=== PATIENT | female | born 1950 | race Caucasian/White ===

== ENCOUNTER 2020-08-27 08:51 | Outpatient (REF) | payer MEDICARE, MEDICAID, SELFPAY ==
--- NOTE | 2020-08-27 | PFT_ITS ---
FLOWS: FEV1 of 86% of predicted at 2.01 L. FVC 91% of predicted at 2.72 L. FEV1 to FVC ratio of 0.95. Bronchodilator testing was not performed as the patient has had albuterol and Advair prior to the testing. LUNG VOLUMES: Total lung capacity 88% of predicted at 4.47 L. Residual volume 73% of predicted at 1.59 L. Slow vital capacity 99% of predicted at 2.88 L. Expiratory reserve volume 85% of predicted at 0.61 L. Diffusion capacity moderately decreased. IMPRESSION: No obstructive or restrictive ventilatory defect. Bronchodilator testing was not performed as the patient has used Advair and albuterol 2 hours prior to the testing. Decreased diffusion capacity suggests emphysema. MD GENE Velasquez/MODL / [id number] MTDD
== END 2020-08-27 08:52 | disposition home or self-care (01) ==
LOC: HO.RESP 08:51
PROVIDERS: PCP Internal Medicine; Visit Provider Hospitalist
DX: J44.9 Chronic obstructive pulmonary disease, unspecified (principal)
CPT/HCPCS: 94010; 94727; 94729

== ENCOUNTER → 2020-09-11 11:33 | Outpatient (BNVA) | payer MEDICARE, MEDICAID, SELFPAY | PROVIDERS: PCP Internal Medicine; Visit Provider Hospitalist | DX: J44.9 Chronic obstructive pulmonary disease, unspecified (principal); J98.4 Other disorders of lung | CPT/HCPCS: 99212 ==

== ENCOUNTER → 2021-09-11 10:26 | Outpatient (BNVA) | payer OTHER, SELFPAY | PROVIDERS: PCP Family Medicine; Visit Provider Hospitalist | DX: J44.9 Chronic obstructive pulmonary disease, unspecified (principal); J98.4 Other disorders of lung | CPT/HCPCS: 99212 ==

== ENCOUNTER 2022-09-14 09:52 | Outpatient (AMB) | payer OTHER, SELFPAY ==
[2022-09-14 09:58] VITALS: BP 128/60; PULSE 89; O2SAT 98; BMI 36.6
--- NOTE | 2022-09-14 09:58 | A.OFFVIS_ITS ---
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 Overall she has been doing well. Back in March she did develop worsening respiratory symptoms. She was taken to the [facility] ER for evaluation. There she had an x-ray that was read as no acute disease she had blood work that was negative. 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 She is continue with her inhalers and she has been at baseline. He has been taking added protection because of the COVID-19 infections. Nobody in her family has gotten sick with virus. Overall she is doing well. We did review her x-ray from [facility] perceived by me demonstrating no acute disease. Also her blood work just demonstrated some mild anemia. At this point the patient is doing well on the current respiratory regimen so therefore we continue this regimen and follow-up with pulmonary function studies during the next visit. 09/11/2020 the patient is here for a pulmonary follow-up visit. Since we last spoke the patient has been doing well. She continues to have some dyspnea on exertion [id number] severity. It is likely multifactorial. She has not required any hospitalizations and has not required any prednisone since I last visit. She has not been able to get her Daliresp in the pharmacy for unclear reason. She felt very good in the Daliresp. Decreased her exacerbations. Therefore, I will resend to the pharmacy. In the meantime she did undergo pulmonary function studies that we personally reviewed in the office. appears to have a mild mixed obstructive / restrictive ventilatory defect consistent with asthma COPD overlap syndrome in addition to restrictive lung disease. Patient also has some decreasing the gas exchange down to 55%. Will have a repeat the chest x-ray. otherwise the patient is without any other complaints. 09/11/2021 the patient is here for a pulmonary follow-up visit. Overall she has been doing well from her respiratory status. She continues use her Advair as prescribed and also Daliresp. While on this therapy she has not required any prednisone which is reassuring. Her productive cough also significantly improved. As far as the vent for events she did have a fall in the bathroom hurting her shoulder and her arm. She is going to get evaluation for that. Den ies any injuries or blunt trauma to the chest area. We did review her last chest x-ray that she had back in 2020 which demonstrated some hyperinflated lungs. Will go ahead and repeat her chest x-ray as well as her PFTs in a year's time. She is going to continue on the current respiratory therapy. 09/14/2022 the patient is here for pulmonary follow-up visit. Overall the patient continues to do well. She has been off all prednisone. She continues to respond well to Daliresp. Will switch over to the generic but she seems to tolerated as well. She has lost about 20 lb in the last year which is reassuring. She does continue on the Advair. The patient does need to have a rescue inhaler make sure to have 1 available. We did review her CT scan that she had back in 2020 demonstrating atelectasis. The patient needs to get a repeat chest x-ray. She could not have her PFTs done because she was sick with a viral syndrome. The patient did not require any medications during that sickness. Clinically the since the patient is doing well will go ahead and postpone the PFTs time next year. Although I do want her to get an x-ray at this time. [facility] Medical History (Updated 09/14/22 @ 10:15 by Alex Lindsay MD) Asthma-COPD overlap syndrome Atelectasis Chronic restrictive lung disease Social History (Updated 09/11/21 @ 10:38 by SARA Alas) Patient Tobacco Use Status: Former Tobacco user Tobacco use type: Cigarette Years Smoked: 30 years Review of Systems Const Denies night sweats ENT Denies change in voice, Denies lip swelling, Denies mouth pain, Reports nasal congestion, Reports nasal discharge, Reports neck pain and Denies tongue swelling Card Denies chest pain Resp Reports cough GI Denies abdominal pain Musc Reports as per HPI, Reports myalgias, Reports arthralgias, Reports joint swelling and Reports neck pain Neuro Denies Neuro-related abnormal movements Psych Denies no additional complaints Lit/Lymph Denies easy bleeding and Denies lymphadenopathy Aller/Immun Denies lip swelling and Denies tongue swelling Physical Exam Vital Signs: Last Vital Signs Pulse 89 09/14/22 09:58 BP 128/60 09/14/22 09:58 Pulse Ox 98 09/14/22 09:58 Oxygen Delivery Method Room Air 09/14/22 09:58 BMI result Body Mass Index 36.6 Const General: alert Neck Neck: Yes normal visual inspection, Yes full ROM and Yes no lymphadenopathy Chest Chest palpation & inspection: normal inspection of the chest Resp Auscultation: no wheezes and diminished lung sounds Cardio Rate: regular rate Rhythm: regular rhythm Heart sounds: S1 normal heart sound present and S2 normal heart sound present GI Palpation (GI): Soft to palpation and nontender Auscultation: normal bowel sounds Skin General skin exam: rashes and/or lesions noted Assessment & Plan Assessment & Plan (1) Asthma-COPD overlap syndrome: Code(s): J44.9 - Chronic obstructive pulmonary disease, unspecified (2) Chronic restrictive lung disease: Code(s): J98.4 - Other disorders of lung (3) Atelectasis: Code(s): J98.11 - Atelectasis Plan continue Daliresp continue Singulair and Claritin continue Advair HFA MARILY as needed chest x-ray PFTs in 1 yr follow-up in 1 year or sooner if she develops any new or concerning symptoms. Orders: Orders XR chest 2V Today J98.11 - Atelectasis Medications: Changed From albuterol sulfate 90 mcg/actuation 2 puffs PO Q4-6H PRN 8.5 ea 3RF for wheezing To albuterol sulfate 90 mcg/actuation 2 puffs PO Q4-6H 30 days PRN 8.5 ea 11RF for wheezing Coding Level of Care Code Est Pt Level 4 (71352) Diagnoses Asthma-COPD overlap syndrome J44.9 Chronic restrictive lung disease J98.4 Atelectasis J98.11 Time Spent (min) 18
== END 2022-09-14 10:24 | disposition home or self-care (01) ==
PROVIDERS: PCP Family Medicine; Visit Provider Hospitalist
DX: J44.9 Chronic obstructive pulmonary disease, unspecified (principal); J98.4 Other disorders of lung; J98.11 Atelectasis
CPT/HCPCS: 99214

== ENCOUNTER → 2022-09-14 09:52 | Outpatient (BNVA) | payer OTHER, SELFPAY | PROVIDERS: Visit Provider Hospitalist | DX: J44.9 Chronic obstructive pulmonary disease, unspecified (principal); J98.4 Other disorders of lung; J98.11 Atelectasis | CPT/HCPCS: 99212 ==

== ENCOUNTER 2023-06-21 08:55 | Outpatient (AMB) | payer OTHER, SELFPAY ==
[2023-06-21 09:02] VITALS: PULSE 84; O2SAT 96; BMI 39.9
--- NOTE | 2023-06-21 09:02 | A.OFFVIS_ITS ---
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 Overall she has been doing well. Back in March she did develop worsening respiratory symptoms. She was taken to the [facility] ER for evaluation. There she had an x-ray that was read as no acute disease she had blood work that was negative. 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 She is continue with her inhalers and she has been at baseline. He has been taking added protection because of the COVID-19 infections. Nobody in her family has gotten sick with virus. Overall she is doing well. We did review her x-ray from [facility] perceived by me demonstrating no acute disease. Also her blood work just demonstrated some mild anemia. At this point the patient is doing well on the current respiratory regimen so therefore we continue this regimen and follow-up with pulmonary function studies during the next visit. 09/11/2020 the patient is here for a pulmonary follow-up visit. Since we last spoke the patient has been doing well. She continues to have some dyspnea on exertion [id number] severity. It is likely multifactorial. She has not required any hospitalizations and has not required any prednisone since I last visit. She has not been able to get her Daliresp in the pharmacy for unclear reason. She felt very good in the Daliresp. Decreased her exacerbations. Therefore, I will resend to the pharmacy. In the meantime she did undergo pulmonary function studies that we personally reviewed in the office. appears to have a mild mixed obstructive / restrictive ventilatory defect consistent with asthma COPD overlap syndrome in addition to restrictive lung disease. Patient also has some decreasing the gas exchange down to 55%. Will have a repeat the chest x-ray. otherwise the patient is without any other complaints. 09/11/2021 the patient is here for a pulmonary follow-up visit. Overall she has been doing well from her respiratory status. She continues use her Advair as prescribed and also Daliresp. While on this therapy she has not required any prednisone which is reassuring. Her productive cough also significantly improved. As far as the vent for events she did have a fall in the bathroom amanda ting her shoulder and her arm. She is going to get evaluation for that. Denies any injuries or blunt trauma to the chest area. We did review her last chest x- ray that she had back in 2020 which demonstrated some hyperinflated lungs. Will go ahead and repeat her chest x-ray as well as her PFTs in a year's time. She is going to continue on the current respiratory therapy. 09/14/2022 the patient is here for pulmonary follow-up visit. Overall the patient continues to do well. She has been off all prednisone. She continues to respond well to Daliresp. Will switch over to the generic but she seems to tolerated as well. She has lost about 20 lb in the last year which is reassuring. She does continue on the Advair. The patient does need to have a rescue inhaler make sure to have 1 available. We did review her CT scan that she had back in 2020 demonstrating atelectasis. The patient needs to get a repeat chest x-ray. She could not have her PFTs done because she was sick with a viral syndrome. The patient did not require any medications during that sickness. Clinically the since the patient is doing well will go ahead and postpone the PFTs time next year. Although I do want her to get an x-ray at this time. 06/21/2023 the patient is here for a pulmonary follow-up visit. Overall she has been doing well. She has not been hospitalized in the last year which is very reassuring. She has been using the Advair twice a day as prescribed. I did recommend she rinse with salt water to minimize risk of thrush. In addition to that she had been using her allergy medications with good effect. We did review her last chest x-ray that was back in the fall of 2022 demonstrating no acute disease which is reassuring. She was supposed to undergo PFTs but otherwise she doing well. We did review the PFTs from 2020 which were reassuring with no evidence of obstruction. Therefore this point as long as she is doing okay will hold off on PFTs. We did talk about vaccinations. The patient most likely receive the Prevnar 20 but she will look into it. In addition to that I recommend that she get the RC vaccine in the flu shot and she should also consider the COVID booster. Will follow-up in a year's time unless the patient develops any worsening symptoms she can always call for an earlier assessment. [facility] Medical History (Updated 09/14/22 @ 10:15 by Alex Lindsay MD) Atelectasis Chronic restrictive lung disease Asthma-COPD overlap syndrome Social History (Updated 09/11/21 @ 10:38 by SARA Alas) Patient Tobacco Use Status: Former Tobacco user Tobacco use type: Cigarette Years Smoked: 30 years Review of Systems Const Denies night sweats ENT Denies change in voice, Denies lip swelling, Denies mouth pain, Reports nasal congestion, Reports nasal discharge, Reports neck pain and Denies tongue swelling Card Denies chest pain Resp Reports cough GI Denies abdominal pain Musc Reports as per HPI, Reports myalgias, Reports arthralgias, Reports joint s welling and Reports neck pain Neuro Denies Neuro-related abnormal movements Psych Denies no additional complaints Lit/Lymph Denies easy bleeding and Denies lymphadenopathy Aller/Immun Denies lip swelling and Denies tongue swelling Physical Exam Vital Signs: Last Vital Signs Pulse 84 06/21/23 09:02 Pulse Ox 96 06/21/23 09:02 Oxygen Delivery Method Room Air 06/21/23 09:02 BMI result Body Mass Index 39.9 Const General: alert Neck Neck: Yes normal visual inspection, Yes full ROM and Yes no lymphadenopathy Chest Chest palpation & inspection: normal inspection of the chest Resp Auscultation: no wheezes and diminished lung sounds Cardio Rate: regular rate Rhythm: regular rhythm Heart sounds: S1 normal heart sound present and S2 normal heart sound present GI Palpation (GI): Soft to palpation and nontender Auscultation: normal bowel sounds Skin General skin exam: rashes and/or lesions noted Assessment & Plan Assessment & Plan (1) Asthma-COPD overlap syndrome: Code(s): J44.9 - Chronic obstructive pulmonary disease, unspecified Category: Medical (2) Chronic restrictive lung disease: Code(s): J98.4 - Other disorders of lung Category: Medical (3) Atelectasis: Code(s): J98.11 - Atelectasis Category: Medical Plan continue Daliresp continue Singulair and Claritin continue Advair HFA MARILY as needed Follow-up in 1 year or sooner if she develops any new or concerning symptoms. Medications: Changed From loratadine 10 mg PO DAILY To loratadine 10 mg PO DAILY 30 tabs 11RF 30 days Refilled Advair HFA 115-21 mcg/actuation (fluticasone propion-salmeterol) 2 puffs PO BID 12 ea 11RF NS albuterol sulfate 90 mcg/actuation 2 puffs PO Q4-6H PRN 8.5 ea 11RF for wheezing 30 days montelukast 10 mg PO DAILY 90 tabs 3RF roflumilast 500 mcg PO DAILY 90 tabs 3RF Coding Level of Care Code Est Pt Level 4 (89507) Diagnoses Asthma-COPD overlap syndrome J44.9 Chronic restrictive lung disease J98.4 Atelectasis J98.11 Time Spent (min) 16
== END 2023-06-21 09:14 | disposition home or self-care (01) ==
PROVIDERS: PCP Family Medicine; Visit Provider Hospitalist
DX: J44.9 Chronic obstructive pulmonary disease, unspecified (principal); J98.4 Other disorders of lung; J98.11 Atelectasis
CPT/HCPCS: 99214

== ENCOUNTER → 2023-06-21 08:55 | Outpatient (BNVA) | payer OTHER, SELFPAY | PROVIDERS: PCP Family Medicine; Visit Provider Hospitalist | DX: J44.9 Chronic obstructive pulmonary disease, unspecified (principal); J98.4 Other disorders of lung; J98.11 Atelectasis | CPT/HCPCS: 99212 ==

== ENCOUNTER 2024-08-21 08:03 | Outpatient (AMB) | payer OTHER, SELFPAY ==
--- OUTSIDE RECORDS SUMMARY | 2024-08-07 05:00 | XMS_ITS | Continuity of Care Document ---
Author Organization [facility] Address [address] [place] [address] Phone Care Team Providers Care Head Packager Name Role Phone Philip MCPHERSON, RVT, PRUDENCIO, Chinmay Unavailable U navailable Procedures Procedure Date Office/Outpt E&M Established 15 Mins- CT & [place] Duplex Scan-extrem Veins; Comp- CT & [place] Duplex Scan-extrem Veins; Uni/ CT & [place] M Varithena, Multiple Truncal Veins Same L eg- CT & [place] Duplex Scan-extrem Veins; Uni/ CT & [place] Inj Scleros Solut; Mx Veins 1- CT & [place] Ultrason Guidan Needle Bx-rad- CT & [place] Duplex Scan-extrem Veins; Uni/ CT & [place] Duplex Scan-extrem Veins; Uni/ CT & [place] M Inj Scleros Solut; Mx Veins 1- CT & MA Ultrason Guidan Needle Bx-rad- CT & MA Varithena, Single Truncal Vein - CT & [place] Offic/outpt E&m Estab 5 Min Trial- Telem edicine CT & [place] Surgical Stockings CVR Reveal Knee High 20-30 Offic Cons New/estab Mod-hi 60- CT & [place] Duplex Scan-extrem Veins; Comp- CT & [place] Duplex Scan-extrem Veins; Uni/ CT & [place] Advance Directives Directive Yes / No Effective Date File Name Other Directive No 08/07/2024 N/A WARNING:The information contained in this section is historical and is provided for information only and does not constitute a legal document or any assurance that the information is still accurate. Please verify the information with the cruz of the legal document before using it for clinical purposes. Encounters Encounter Description Practice Location Reason(s) For Visit Diagnoses Date Provider Providers Copied on Encounter Office/Outpt E&M Established 15 Mins- [place] & [place] [facility], [address] [place] [address] Dr Dick 1000[facility] [place] MD, [id number], tel:[phone] CVR - [place] Cramp and spasmRestless legs syndromeVenou s insufficiency (chronic) (peripheral)T ype 2 diabetes mellitus without complications Essential (primary) hypertension 5 Philip MCPHERSON RVT, PRUDENCIO Moy. [address] [place] [address], [facility] [place], [id number], [place]. tel:[phone] Referring Provider: Cristofer Delong MD, [address] [place] [address], [place], [address]. tel:[phone] [facility], [address] [place] [address] Dr Dick 1000[place] guzmán [place], [id number], [place] tel:[phone] CVR - [place] Varicose veins of bilateral lower extremities with pain 5 Philip MCPHERSON RVT, PRUDENCIO Moy. [address] [place] [address], [facility] [place] [place], [id number], [place]. tel:[phone] Referring Provider: Cristofer Delong MD, [address] [place] [address], [place], [address]. tel:[phone] [facility], [address] [place] [address] Dr Dick 1000[place]ina guzmán [place], [id number], tel:[phone] CVR - [facility] Encounter for follow-up examination after completed treatment for conditions other than malignant neoplasmVaric ose veins of left lower extremity with pain 5 Philip MCPHERSON RVT, PRUDENCIO Moy. [address] [place] [address], [address], [place], [id number], [place]. tel:[phone] Referring Provider: Cristofer Delong MD, [address] [place] [address] [place] [address], suite [facility], [place], [address]. tel:[phone] [facility], [address] [place] [address] [facility] [address], [id number], [place] tel:[phone] [facility] venous hypertension (idiopathic) with inflammation of left lower extremity 5 Philip MCPHERSON RVT, PRUDENCIO Moy. [address] [place] [address], [place] [address], [place], [id number], [place]. tel:[phone] Referring Provider: Cristofer Delong MD, [address] [place] [address] [place] [address], suite [facility], [place], [address]. tel:[phone] [facility], [address] [place] [address] [facility] [address], [id number], [place] tel:[phone] [facility] Encounter for follow-up examination after completed treatment for conditions other than malignant neoplasmVaric ose veins of right lower extremity with pain 5 Philip MCPHERSON RVT, PRUDENCIO Moy. [address] [place] [address], [address], [place], [id number], [place]. tel:[phone] Referring Provider: Cristofer Delong MD, [address] [place] [address] [place] [address], [place] [address], [place], [address]. tel:[phone] [facility], [address] [place] [address] Dr Dick 1000[address], [id number], [place] tel:[phone] [facility] Varicose veins of right lower extremity with other complications 5 Philip MCPHERSON RVT, RPVI Robert. [address] [place] [address], [place] [address], [place], [id number], [place]. tel:[phone] Referring Provider: Cristofer Delong MD, [address] [facility] [address] [place] [address], [place] [address], [place], [address]. tel:[phone] [facility], [address] [place] [address] [facility] [place], [id number], [place] tel:[phone] CVR - [place] Encounter for follow-up examination after completed treatment for conditions other than malignant neoplasmChron ic venous hypertension (idiopathic) with other complications of right lower extremity 5 Philip MCPHERSON RVT, RPVI Robert. [address] [place] [address], [place], [id number], [place]. tel:[phone] Referring Provider: Cristofer Delong MD, [facility]0 [facility] [address] [place] [address] suite [facility], [place], [address]. tel:[phone] [facility], [address] [place] [address] [facility] 1000Suite [place], [id number], [place] tel:[phone] CVR - [place] Encounter for follow-up examination after completed treatment for conditions other than malignant neoplasmVaric ose veins of right lower extremity with pain 5 Philip MCPHERSON RVT, RPVI Robert. [address] [place] [address], [place], [id number], [place]. tel:[phone] Referring Provider: Cristofer Delong MD, [address] [facility] [address] [place] [address], [place] [address], [place], [address]. tel:[phone] [facility], [address] [place] [address] Dr Dick 1000Suite [place], [id number], [place] tel:[phone] CVR - [place] Varicose veins of right lower extremity with other complications 5 Philip MCPHERSON RVT, RPVI Robert. [address] [place] [address], [place], [id number], [place]. tel:[phone] Referring Provider: Cristofer Delong MD, [facility]0 [facility] [address] [place] [address], [place], [address]. tel:[phone] [facility], [address] [place] [address] Dr Dick 1000[facility] [place], [id number], [place] tel:[phone] CVR - [place] Varicose veins of right lower extremity with other complications June-0 5 Philip MCPHERSON RVT, PRUDENCIO Moy. [address] [place] [address], [place], [id number], [place]. tel:[phone] Referring Provider: Cristofer Delong MD, [facility]0 [place] [address], [place], [address]. tel:[phone] Offic/outpt E&m Estab 5 Min Trial- Telemedicine CT & [place] [facility], [address] [place] [address] Dr Dick 1000[facility] [place] MD, [id number], [place] tel:[phone] CVR - [place] Cramp and spasmRestless legs syndromeVenou s insufficiency (chronic) (peripheral)T ype 2 diabetes mellitus without complications Essential (primary) hypertension Apr-0 5 Emanuel Cameron. [address] [place] [address], [place], [id number], [place]. tel:[phone] Referring Provider: Cristofer Delong MD, [facility]0 [facility] [address] [place] [address], [place], [address]. tel:[phone] [facility], [address] [place] [address] Dr Dick 1000Suite [place] MD, [id number], [place] tel:[phone] CVR - [place] Chronic venous hypertension (idiopathic) with other complications of bilateral lower extremity Mar-2 5 Philip MCPHERSON RVT, PRUDENCIO Moy. [address] [place] [address], [place], [id number], [place]. tel:[phone] Offic Cons New/estab Mod-hi 60- CT & [place] [facility], [address] [place] [address] Dr Dick [address] [address], [id number], [place] tel:[phone] CVR - [place] Varicose veins of bilateral lower extremities with other complications Type 2 diabetes mellitus without complications Restless legs syndromeEssen tial (primary) hypertensionV enous insufficiency (chronic) (peripheral)C ramp and spasm Mar- 5 Philip MCPHERSON RVT, PRUDENCIO Moy. [address] [place] [address], [place] [address], [place], [id number], [place]. tel:[phone] Referring Provider: Cristofer Delong MD, [address] [place] [address], [place], [address]. tel:[phone] [facility], [address] [place] [address] [facility] [address] [address], [id number], [place] tel:[phone] CVR - [place] Chronic venous hypertension (idiopathic) with other complications of bilateral lower extremity 5 Philip MCPHERSON RVT, PRUDENCIO Moy. [address] [place] [address], [place], [id number], [place]. tel:[phone] Referring Provider: Cristofer Delong MD, [facility]0 [place] [address], [place], [address]. tel:[phone] [facility], [address] [place] [address] [address] 1000[place], [id number], [place] tel:[phone] CVR - [place] Pain in right lower leg 5 Philip MCPHERSON RVT, PRUDENCIO Moy. [address] [place] [address], [place], [id number], [place]. tel:[phone] Referring Provider: Cristofer Delong MD, [facility]0 [facility] [address] [place] [address], [place], [address]. tel:[phone] Family History Family Member Type Diagnosis Age At Onset No Information Payers Payer name Insurance type Covered alliance party ID Marcelino preciado(s) [facility] [id number] Social History Type Description Quantity Date Captured Comments Alcohol Use Details Unknown Caffeine Use Details Unknown Tobacco Use Status No Information Smoking Status Former Smoker Non-Smoking Tobacco Use Details : No Details Available : No Details Available Sex Female Vital Signs Date / Time: Height Weight BMI Pulse Rate Blood Pressure Temperature Respiratory Rate Body Surface Area Head Circumference Head Circ. Percentile Wt./Anthony. Percentile BMI percentile Pulse Ox Inhaled Ox 100.240 kg (221.00 lbs) 35.7 7 kg/m eter (2) 134/82 mm[Hg] Chief Complaint And Reason For Visit No Information Reason For Referral Reason For Referral No Information Plan Of Treatment Date Type Action Status Goal Tobacco cessation counseling completed Goal Diet education completed Goal Tobacco cessation counseling completed Goal Tobacco cessation counseling completed Goal Diet education completed Referral Ordered: Weight management: Referral to physician timeframe: 3 Months (related to Body mass index (BMI) 35.0-35.9, adult) ordered Referral Ordered: Weight management: Referral to physician timeframe: 3 Months (related to Body mass index (BMI) 35.0-35.9, adult) ordered Appointment Evonne Lindsay (6 Month) [facility] Appointment Evonne Lindsay (6 Month) [facility] History Of Present Illness Encounter Date Complaint History Of Prese nt Illness No Information Functional Status Date Functional Assessmen t No Information Instructions Date Instruction Additional Infor anthony Patient education booklet given Related to Cramp and spasm Compression stocking usage as conservative measure Related to Cramp and spasm Lifestyle education Related to B ruth mass index (BMI) 35.0-35.9, adult Giving Encouragement to exercise Related to Body mass index (BMI) 35.0-35.9, adult Diet education Related to Body mass index (BMI) 35.0-35.9, adult Pre and post instruc tions reviewed and provided Related to Cramp and spasm Patient education booklet given Related to Cramp and spasm Lifestyle education Related to B ruth mass index (BMI) 35.0-35.9, adult Giving Encouragement to exercise Related to Body mass index (BMI) 35.0-35.9, adult Pre and post instruc tions reviewed and provided Related to Varicose veins of bilateral lower extremities with other complications Patient education booklet given Related to Varicose veins of bilateral lower extremities with other complications Diet education Related to Body mass index (BMI) 35.0-35.9, adult Assessments Type Assessment Date No Information Patient Care Teams Name Effective Dates (start - stop) Status Members No Information
--- NOTE | 2024-08-21 08:05 | A.OFFVIS_ITS ---
Vital Signs 08/21/24 08:06 Height 5 ft 6 in Weight 216 lb 0.848 oz BMI 34.9 BP 110/56 L Blood Pressure Location Lt brachial Position Sitting Pulse 74 Pulse Source Pulse Oximeter Pulse Oximetry (%) 97 Oxygen Delivery Method Room Air Intake Visit Reasons: copd Allergies metformin Allergy (Mild, Verified 08/21/24 08:07) Vomiting Tetanus Allergy (Severe, Uncoded 06/21/23 09:03) swelling/hives HPI Comments Details: The patient is a 73-year-old woman with a known history of COPD. Overall she has been doing well. Back in March she did develop worsening respiratory symptoms. She was taken to the [facility] ER for evaluation. There she had an x-ray that was read as no acute disease she had blood work that was negative. 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 She is continue with her inhalers and she has been at baseline. He has been taking added protection because of the COVID-19 infections. Nobody in her family has gotten sick with virus. Overall she is doing well. We did review her x-ray from [facility] perceived by me demonstrating no acute disease. Also her blood work just demonstrated some mild anemia. At this point the patient is doing well on the current respiratory regimen so therefore we continue this regimen and follow-up with pulmonary function studies during the next visit. 09/11/2020 the patient is here for a pulmonary follow-up visit. Since we last spoke the patient has been doing well. She continues to have some dyspnea on exertion [id number] severity. It is likely multifactorial. She has not required any hospitalizations and has not required any prednisone since I last visit. She has not been able to get her Daliresp in the pharmacy for unclear reason. She felt very good in the Daliresp. Decreased her exacerbations. Therefore, I will resend to the pharmacy. In the meantime she did undergo pulmonary function studies that we personally reviewed in the office. appears to have a mild mixed obstructive / restrictive ventilatory defect consistent with asthma COPD overlap syndrome in addition to restrictive lung disease. Patient also has some decreasing the gas exchange down to 55%. Will have a repeat the chest x-ray. otherwise the patient is without any other complaints. 09/11/2021 the patient is here for a pulmonary follow-up visit. Overall she has been doing well from her respiratory status. She continues use her Advair as prescribed and also Daliresp. While on this therapy she has not required any prednisone which is reassuring. Her productive cough also significantly improved. As far as the vent for events she did have a fall in the bathroom hurting her shoulder and her arm. She is going to get evaluation for that. Denies any injuries or blunt trauma to the chest area. We did review her last chest x-ray that she had back in 2020 which demonstrated some hyperinflated lungs. Will go ahead and repeat her chest x-ray as well as her PFTs in a year's time. She is going to continue on the current respiratory therapy. 09/14/2022 the patient is here for pulmonary follow-up visit. Overall the patient continues to do well. She has been off all prednisone. She continues to respond well to Daliresp. Will switch over to the generic but she seems to tolerated as well. She has lost about 20 lb in the last year which is reassuring. She does continue on the Advair. The patient does need to have a rescue inhaler make sure to have 1 available. We did review her CT scan that she had back in 2020 demonstrating atelectasis. The patient needs to get a repeat chest x-ray. She could not have her PFTs done because she was sick with a viral syndrome. The patient did not require any medications during that sickness. Clinically the since the patient is doing well will go ahead and postpone the PFTs time next year. Although I do want her to get an x-ray at this time. 06/21/2023 the patient is here for a pulmonary follow-up visit. Overall she has been doing well. She has not been hospitalized in the last year which is very reassuring. She has been using the Advair twice a day as prescribed. I did recommend she rinse with salt water to minimize risk of thrush. In addition to that she had been using her allergy medications with good effect. We did review her last chest x-ray that was back in the fall of 2022 demonstrating no acute disease which is reassuring. She was supposed to undergo PFTs but otherwise she doing well. We did review the PFTs from 2020 which were reassuring with no evidence of obstruction. Therefore this point as long as she is doing okay will hold off on PFTs. We did talk about vaccinations. The patient most likely receive the Prevnar 20 but she will look into it. In addition to that I recommend that she get the RC vaccine in the flu shot and she should also consider the COVID booster. Will follow-up in a year's time unless the patient develops any worsening symptoms she can always call for an earlier assessment. 08/21/2024 the patient is here for pulmonary follow-up visit. Overall she is doing well. She has had a few coughs over the year but not required any medications or hospitalizations. She has not had any recent imaging studies. She continues on the Advair in addition to the Daliresp. She does not use her albuterol frequently. Typically less than twice a week. The patient has not had a chest x-ray in more than a year. From a breathing standpoint she is doing well on exam. Will go ahead and get an x-ray to follow-up with her atelectasis. The patient has been vaccinated. She needs to check on her Tdap. Will go ahead and follow-up in a year's time. If any new issues arise she can always call for an earlier assessment. [facility] Medical History (Updated 09/14/22 @ 10:15 by Alex Lindsay MD) Atelectasis Chronic restrictive lung disease Asthma-COPD overlap syndrome Social History Patient Tobacco Use Status: Former Tobacco user Tobacco use type: Cigarette Years Smoked: 30 years Review of Systems Const Denies night sweats ENT Denies change in voice, Denies lip swelling, Denies mouth pain, Reports nasal congestion, Reports nasal discharge, Reports neck pain and Denies tongue swelling Card Denies chest pain Resp Reports cough GI Denies abdominal pain Musc Reports arthralgias and Reports neck pain Neuro Denies Neuro-related abnormal movements Psych Denies no additional complaints Lit/Lymph Denies easy bleeding and Denies lymphadenopathy Aller/Immun Denies lip swelling and Denies tongue swelling Physical Exam Vital Signs: Last Vital Signs Pulse 74 08/21/24 08:06 BP 110/56 L 08/21/24 08:06 Pulse Ox 97 08/21/24 08:06 Oxygen Delivery Method Room Air 08/21/24 08:06 BMI result Body Mass Index 34.9 Const General: alert Neck Neck: Yes normal visual inspection, Yes full ROM and Yes no lymphadenopathy Chest Chest palpation & inspection: normal inspection of the chest Resp Auscultation: no wheezes and diminished lung sounds Cardio Rate: regular rate Rhythm: regular rhythm Heart sounds: S1 normal heart sound present and S2 normal heart sound present GI Palpation (GI): Soft to palpation and nontender Auscultation: normal bowel sounds Skin General skin exam: rashes and/or lesions noted Assessment & Plan Assessment & Plan (1) Asthma-COPD overlap syndrome: Code(s): J44.9 - Chronic obstructive pulmonary disease, unspecified Category: Medical (2) Chronic restrictive lung disease: Code(s): J98.4 - Other disorders of lung Category: Medical (3) Atelectasis: Code(s): J98.11 - Atelectasis Category: Medical Plan continue Daliresp continue Singulair and Claritin continue Advair HFA MARILY as needed CXR Follow-up in 1 year or sooner if she develops any new or concerning symptoms. Orders: Orders XR chest 2V Today J98.11 - Atelectasis Medications: Changed From albuterol sulfate 90 mcg/actuation 2 puffs PO Q4-6H 30 days PRN 8.5 ea 5RF for wheezing To albuterol sulfate 90 mcg/actuation 2 puffs inhalation Q4-6H PRN 3 ea 3RF for wheezing 90 days From loratadine 10 mg PO DAILY 30 days 30 tabs 3RF To loratadine 10 mg PO DAILY 90 tabs 3RF 90 days From Advair HFA 115-21 mcg/actuation (fluticasone propion-salmeterol) 2 puffs PO BID 12 ea 5RF NS To Advair HFA 115-21 mcg/actuation (fluticasone propion-salmeterol) 2 puffs PO BID 3 ea 3RF 90 days NS Refilled albuterol sulfate 2.5 mg (3 mL) inhalation Q6H PRN 180 mL 11RF shortness of breath or wheezing 30 days roflumilast 500 mcg PO DAILY 90 tabs 3RF montelukast 10 mg PO DAILY 90 tabs 3RF Coding Level of Care Code Est Pt Level 4 (76364) Diagnoses Asthma-COPD overlap syndrome J44.9 Chronic restrictive lung disease J98.4 Atelectasis J98.11 Time Spent (min) 16
[2024-08-21 08:06] VITALS: BP 110/56; PULSE 74; O2SAT 97; BMI 34.9
--- OUTSIDE RECORDS SUMMARY | 2024-08-21 08:06 | XMS_ITS | Encounter Summary ---
Author Organization [facility], Address [address] [address] Phone Care Team Providers Care Woolen Suiting Shrinker Name Role Phone Cristofer Delong MD Primary Care Provider [phone] Reason for Visit * Reason Comments Med Refill Encounter Details Date Type Department Care Team (Late Contact Info) Description 08/18/2020 Refill [facility] [address] [place] [address] Danny Herrmann MD [address] [place] [address] [place] [address] Social History Tobacco Use Types Packs/Day Years Used Date Smoking Tobacco: Former Cigarettes Q uit: 12/10/2001 Comments:Smoking History Inf o:Unknown Alcohol Use Standard Drinks/Week Comments No 0 (1 standard drink = 0.6 oz pure alcohol) Alcoholic Drinks/day: Occasional social drink Comments Unknown Sex and Gender Information Value Date Recorded Sex Assigned at Not on file Legal Sex Female 4:30 PM EST Gender Identity Not on file Sexual Orientation Not on file documented as of this encounter Plan of Treatment Upcoming Encounters Date Type Department Care Team (Late Contact Info) Description 09/15/2024 3:00 PM EDT Office Visit [facility], [address] [address] Danny Herrmann MD [address] [place] [address] [place] [address] documented as of this encounter Visit Diagnoses Not on filedocumented in this encounter Care Teams Woolen Suiting Shrinker Relationship Specialty Start Date End Date Cristofer Delong MD [facility] [address] [address] PCP - General Family Medicine 02/28/21 documented as of this encounter
--- OUTSIDE RECORDS SUMMARY | 2024-08-21 08:06 | XMS_ITS | Clinical Summary ---
Author Organization [facility] Address [address] [place] [address] Phone Care Team Providers Care Cargo Router Name Role Phone Cristofer Delong MD Primary Care Provider [phone] Surgical History Surgery Date Site/Laterality Comments TONSILLECTOMY PROCEDURE: HISTORICAL TONSILLECTOMY SECTION PROCEDURE: HISTORICAL DELIVERY HAND SURGERY PROCEDURE: HISTORICAL HAND SURGERY HERNIA REPAIR PROCEDURE: HISTORICAL HERNIA REPAIR/UMB Medical History Medical History Date Comments Diabetes mellitus type 2, uncomplicated ([facility] V24, [facility] V28) 04/01/2016 DX:Diabetes mellitus type 2, uncomplicated ([facility]) Social History Tobacco Use Types Packs/Day Years Used Date Smoking Tobacco: Former Cigarettes Smokeless Tobacco: Never Comments No Sex and Gender Information Value Date Recorded Sex Assigned at Not on file Legal Sex Female 4:55 AM EST Gender Identity Not on file Sexual Orientation Not on file Obstetrics History Para Term AB IAB SAB Ectopic Multiple Livin g Live Births 4 Last Filed Vital Signs Vital Sign Reading Time Taken Comments Blood Pressure - - Pulse - - Temperature - - Respiratory Rate - - Oxygen Saturation - - Inhaled Oxygen Concentration - - Weight 99.8 kg (220 lb) 02/04/2024 8:26 AM EST Height 167.6 cm (5' 6 ) 02/04/2024 8:26 AM EST Body Mass Index 35.51 02/04/2024 8:26 AM EST Plan of Treatment Health Maintenance Due Date Last Done Comments Diabetes: Annual GFR (Glomerular Filtration Rate) 1950 Diabetes: Annual Foot Exam 10/03/1961 Diabetes: Annual Retina Eye Exam 10/03/1961 RSV Immunization Adult Patients (1 - Risk 60-74 years 1-dose series) 2011 DTaP,Tdap,and Td Vaccines (2 - Td or Tdap) 10/27/2017 10/28/2007 Cholesterol Screening (Lipid Panel) 01/18/2022 Colorectal Cancer Screening: Colonoscopy 01/18/2022 Depression Screening 01/18/2022 Falls Risk Assessment 01/18/2022 Hepatitis C Screening 01/18/2022 Medicare Annual Wellness Visit 01/18/2022 Social Influencers of Health Screening 01/18/2022 Diabetes: Annual Urine Albumin-Creatinine Ratio (uACR) 01/22/2022 Diabetes: Blood Sugar Control Test (HGBA1C) 01/22/2022 COVID-19 Vaccine ( season) 2023 06/10/2020, 05/20/2020 Hypertension/CHF/CAD Annual BMP Blood Test 02/04/2024 Influenza Vaccine (#1) 2024 , 11/13/2022, 11/07/2021, Additional history exists Breast Cancer Screening 02/03/2026 02/04/20 24, 02/02/2023, 01/28/2022, Additional history exists Osteoporosis Screening (Bone Density Screening) 12/26/2028 12/26/2018 Zoster Vaccines Completed 09/21/2018, 06/15, 11/11/2016 Pneumococcal Vaccine: 50+ Years Completed 10/05/2019, 09/21/2018, 08/20/2017, Additional history exists HIB Vaccines Aged Out No longer eligi ble based on patient's age to complete this topic HPV Vaccines Aged Out No longer eligi ble based on patient's age to complete this topic Hepatitis A Vaccines Aged Out No long er eligible based on patient's age to complete this topic Hepatitis B Vaccines Aged Out No long er eligible based on patient's age to complete this topic IPV Vaccines Aged Out No longer eligi ble based on patient's age to complete this topic MMR Vaccines Aged Out No longer eligi ble based on patient's age to complete this topic Meningococcal ACWY Vaccine Aged Out N o longer eligible based on patient's age to complete this topic Meningococcal B Vaccine Aged Out No l onger eligible based on patient's age to complete this topic RSV Immunization Patients Under 20 months Aged Out No longer eligible based on patient's age to complete this topic Varicella Vaccines Aged Out No longer eligible based on patient's age to complete this topic Procedures Procedure Name Priority Date/Time Associated Diagnosis Comments MG MAMMO DIGITAL SCREENING W LUIS MANUEL BILAT Routine 02/04/2024 8:27 AM EST Encounter for screening mammogram for breast cancer BIBI DEXA AXIAL SKELETON Routine 12/26/2018 3:22 PM EST Asymptomatic menopausal state from Last 3 Months or Most Recently Relevant to Health Maintenance Results * MG Mammo Digital Screening w Luis Manuel bilat (02/04/2024 8:27 AM EST) Anatomical Region Laterality Modality Breast Bilateral Mammography 02/10/2024 7:48 AM EST Impressions 02/10/2024 7:55 AM EST No mammographic evidence of malignancy. A negative mammogram in the presence of a clinically suspicious palpable abnormality does not preclude the possibility of malignancy or alter the indications for biopsy. PQRI CPT II 3341F Code 23677, 90998 PQRI 225 CPT II 7025F TISSUE DENSITY: The breasts are almost entirely fatty. (BI-RADS Category A) IMPRESSION: Benign. BI-RADS CATEGORY: 1 - NEGATIVE RECOMMENDATION: Screening bilateral mammogram is recommended in 1 year. Mammo Location: [facility], [address] [place] [id number] -------- FINAL REPORT -------- Dictated By: Johnson Asencio Dictated Date: 02/10/2024 07:48 ET Assigned Physician: Johnson Asencio Reviewed and Electronically Signed By: Johnson Asencio Signed Date: 02/10/2024 07:55 ET Workstation ID: [id number] Transcribed By: Self Edit Transcribed Date: 02/10/2024 07:48 ET Narrative 02/10/2024 7:55 AM EST CLINICAL: The patient is a 73 years Female presenting for routine screening mammography. COMPARISON: Most recently 02/02/2023 and most remotely 11/30/2016. TECHNIQUE: Full-field digital mammography of the breasts bilaterally consisting of tomosynthesis in MLO and CC projection is performed in the Conferizeographe 2000-D unit. Computer aided detection utilizing the iCAD system was utilized. FINDINGS: The breasts are again seen to be nearly completely fatty replaced. There is no cluster of microcalcifications, mass, or area of architectural distortion. There is no skin thickening or nipple retraction. Procedure Note Johnson Asencio MD - 02/10/2024 CLINICAL: The patient is a 73 years Female presenting for routinescreening mammography. COMPARISON: Most recently 02/02/2023 and most remotely 11/30/2016. TECHNIQUE: Full-field digital mammography of the breasts bilaterallyconsisting of tomosynthesis in MLO and CC projection is performed in theSubtext Senographe 2000-D unit. Computer aided detection utilizing the iCADsystem was utilized. FINDINGS: The breasts are again seen to be nearly completely fattyreplaced. There is no cluster of microcalcifications, mass, or area ofarchitectural distortion. There is no skin thickening or nippleretraction. IMPRESSION: No mammographic evidence of malignancy. A negative mammogram in the presence of a clinically suspicious palpableabnormality does not preclude the possibility of malignancy or alter theindications for biopsy. PQRI CPT II 3341F Code 45253, 30425 PQRI 225 CPT II 7025F TISSUE DENSITY: The breasts are almost entirely fatty. (BI-RADS CategoryA) IMPRESSION: Benign. BI-RADS CATEGORY: 1 - NEGATIVE RECOMMENDATION: Screening bilateral mammogram is recommended in 1 year. Mammo Location: [facility], [address] [place] [id number] -------- FINAL REPORT -------- Dictated By: Johnson Asencio Dictated Date: 02/10/2024 07:48 ET Assigned Physician: Johnson Asencio Reviewed and Electronically Signed By: Johnson Asencio Signed Date: 02/10/2024 07:55 ET Workstation ID: [id number] Transcribed By: Self Edit Transcribed Date: 02/10/2024 07:48 ET us Self Referral Sppl IMG BI PROCEDURES Final Resul t * BIBI DEXA AXIAL SKELETON (12/26/2018 3:22 PM EST) Anatomical Region Laterality Modality Mammography 12/26/2018 12:4 0 PM EST Narrative 12/26/2018 3:22 PM EST [facility] Diagnostic Imaging Department [address] [place] [id number] Patient: EVONNE LINDSAY D.O.B./Age/Sex: 1950 - 68 - F Unit#: [id number] Location/Status: [facility] CLI Mnemonic/Ordering Site: MAMDEXAAX/SPMAM Ordering Physician: TRISTAN DE LUNA MD [facility] Dexa Axial Skeleton - 12/26/18 - 1329 [facility] Dexa Axial Skeleton INDICATION: POST MENOPAUSE Technique: Bone densitometry was performed utilizing dual energy x-ray absorptiometry (DEXA). The lumbar spine is evaluated in the AP projection from L1 through L4. The proximal femora are evaluated in the AP projection bilaterally. The patient is taking vitamin D supplements. COMPARISON: 08/25/2016 FINDINGS: AP spine: Bone mineral density: 1.038 gm/cm2 T-score: -1.2 Right femoral neck: Bone mineral density: 0.816 gm/cm2 T-score: -1.6 IMPRESSION: Findings suggesting osteopenia, placing the patient at risk for fracture. The FRAX result suggests a 10 year probability of major osteoporotic fracture of 13.1 % and hip fracture of 1.4%. 10 year probability of osteoporotic fracture may be lower than FRAX estimate if patient has received treatment. [id number] A report detailing these results has been enclosed. Dictating Physician: LEV COLORADO MD Electronically Signed by: LEV COLORADO MD Dic Date/Time: 12/26/18 1520 Sign date/Time: 12/26/18 1522 Procedure Note Lev [place] - 02/03/2022 [facility] Diagnostic Imaging Department [address] [place], [place] [id number] Patient: EVONNE LINDSAY D.O.B./Age/Sex: 1950 - 68 - F Unit#: [id number] Location/Status: [facility] CLI [facility]emonic[facility] Ordering Physician: TRISTAN DE LUNA MD [facility] Dexa Axial Skeleton - 12/26/18 - 1329 [facility] Dexa Axial Skeleton INDICATION: POST MENOPAUSE Technique: Bone densitometry was performed utilizing dual energy x-ray absorptiometry (DEXA). The lumbar spine is evaluated in the AP projectionfrom L1 through L4. The proximal femora are evaluated in the AP projection bilaterally. The patient is taking vitamin D supplements. COMPARISON: 08/25/2016 FINDINGS: AP spine: Bone mineral density: 1.038 gm/cm2 T-score: -1.2 Right femoral neck: Bone mineral density: 0.816 gm/cm2 T-score: -1.6 IMPRESSION: Findings suggesting osteopenia, placing the patient at risk forfracture. The FRAX result suggests a 10 year probability of major osteoporoticfracture of 13.1 % and hip fracture of 1.4%. 10 year probability of osteoporotic fracture may be lower than FRAXestimate if patient has received treatment. [id number] A report detailing these results has been enclosed. Dictating Physician: LEV COLORADO MD Electronically Signed by: LEV COLORADO MD Dic Date/Time: 12/26/18 1520 Sign date/Time: 12/26/18 1522 Tristan De Luna MD IMG BI PROCEDURES Final Result from Last 3 Months or Most Recently Relevant to Health Maintenance Insurance [facility] MEDICARE Member Subscriber Plan / Payer (Ef fective 2021-Present) Name:Evonne Lindsay Relation to Subscriber:Self Name:Evonne Lindsay Payer ID:[id number] Group ID:[id number] Type:Not on file Address: [facility] [address] [address] Advance Directives Documents on File Type Date Recorded Patient Obstetrical Anesthesiologist Expl anation Health Care Decision (hx) 10/07/2014 AD OSBORN DIRECTIVE Health Care Decision (hx) 10/07/2014 AD OSBORN DIRECTIVE Health Care Decision (hx) 10/07/2014 AD OSBORN DIRECTIVE Health Care Decision (hx) 10/07/2014 AD OSBORN DIRECTIVE Health Care Decision (hx) 10/07/2014 AD OBSORN DIRECTIVE Health Care Decision (hx) 10/07/2014 AD OSBORN DIRECTIVE Health Care Decision (hx) 10/07/2014 AD OSBORN DIRECTIVE Health Care Decision (hx) 10/07/2014 AD OSBORN DIRECTIVE Health Care Decision (hx) 10/07/2014 AD OSBORN DIRECTIVE Health Care Decision (hx) 10/07/2014 AD OSBORN DIRECTIVE Health Care Decision (hx) 10/07/2014 AD OSBORN DIRECTIVE Health Care Decision (hx) 10/07/2014 AD OSBORN DIRECTIVE Health Care Decision (hx) 10/07/2014 AD OSBORN DIRECTIVE Health Care Decision (hx) 10/07/2014 AD OSBORN DIRECTIVE Care Teams Cargo Router Relationship Specialty Start Date End Date Cristofer Delong MD [address] [address] PCP - General Family Medicine 02/04/24
--- OUTSIDE RECORDS SUMMARY | 2024-08-21 08:06 | XMS_ITS | Data Portability ---
Author Organization [employer] [facility] Address [address] [place] [address] Care Team Providers Care Mail Reader Name Role Phone SARANYA RODRIGUEZ Primary Care Provider [phone] HIM [facility] OTHER Assessment Encounter Date Assessment Date Assessment LastModified by Organization Details LastModified Time 01/05/2024 01/05/2024 I provided real -time medical direction via phone for this encounter and was available for additional phone-based assistance as needed. I have reviewed and agree with the Assessment and Plan as documented by the Watch Parts Inspector. Patient given the opportunity to ask questions. Our service contacted for an assessment of: ? UTI As per above, patient with frequent vaginal complaints. Thinks she has a new UTI. Denies suprapubic pain as well as flank or abdominal pain. Often has frequency or urgency. Her primary complaint appears to be itching. Also may have complaints of dysuria but not consistent urinary symptoms. Denies fever or chills. Chart reviewed for Per hangar attendant on the scene, vital signs stable patient is afebrile. UA positive leukocytes but was not a clean catch. No nitrates and no blood. Impression and plan: Frequent urinary symptoms and vaginal symptoms. Last culture negative and no growth. Concern for either urethritis or atrophic vaginitis as alternative diagnosis. Patient would benefit from in-person evaluation and urology referral. Given that her symptoms are not consistent with primary urinary tract infection will defer on antibiotics. Red flags discussed as to when to seek a higher level of care. Allergies: Reviewed and updated PCP f/u: We discussed the diagnostic uncertainty of home visits and the risk associated with this. In this case, the patient and I felt this to be an acceptable and reasonable amount of risk given the benefit of avoiding an ED visit. We discussed the need to seek care urgently/emergen tly in the setting of any new or worsening serious symptoms, particularly fever chills Not available 01/08/2024 10:12:17 04/24/2024 04/24/2024 I provided real -time medical direction via phone for this encounter and was available for additional phone-based assistance as needed. I have reviewed and agree with the Assessment and Plan as documented by the Watch Parts Inspector. Patient given the opportunity to ask questions. Our service contacted for an assessment of: Urinary symptoms As per above, patient with approximately 24 hours of dysuria, frequency. No history of frequent urinary tract infections. Denies fever, chills, abdominal pain, back pain, flank pain. Per hangar attendant on the scene, Vital signs are stable and the patient is afebrile. Patient is nontoxic in appearance. UA is positive for leukocytes. Impression: Urinary symptoms and UTI Plan: Keflex 500 mg BID for 5 days. Allergies: reviewed We discussed the diagnostic uncertainty of home visits and the risk associated with this. In this case, the patient and I felt this to be an acceptable and reasonable amount of risk given the benefit of avoiding an ED visit. We discussed the need to seek care urgently/emergen tly in the setting of any new or worsening serious symptoms, particularly fever chills Not available 04/24/2024 18:42:03 06/27/2024 06/27/2024 I provided real -time medical direction via phone for this encounter and was available for additional phone-based assistance as needed. I have reviewed and agree with the Assessment and Plan as documented by the Watch Parts Inspector. Patient given the opportunity to ask questions. Our service contacted for an assessment of: Urinary symptoms As per above, patient with approximately 24 hours of dysuria, suprapubic pain with some radiation to the flank. Positive history of frequent urinary tract infections. Denies fever, chills, abdominal pain. Per hangar attendant on the scene, Vital signs are stable and the patient is afebrile. Patient is nontoxic in appearance. UA is positive for leukocytes. Impression: Urinary symptoms and UTI Plan: Reviewed previous culture results and previous treatment for UTI And urinary symptoms. Previously patient was successfully treated with Keflex. Will initiate that course and check a urine culture. Allergies: reviewed We discussed the diagnostic uncertainty of home visits and the risk associated with this. In this case, the patient and I felt this to be an acceptable and reasonable amount of risk given the benefit of avoiding an ED visit. We discussed the need to seek care urgently/emergen tly in the setting of any new or worsening serious symptoms, particularly fever chills Not available 06/27/2024 16:10:01 07/03/2024 07/03/2024 Impression: 73yo/f presenting to [facility] with urinary symptoms. Patient states had been seen by [facility] approximately 1 week ago, had urine dip with possible UTI, given 1 dose of keflex, urine culture was negative and advised to discontinue further antibiotic treatment. Patient states symptoms over the last few days have increased, she is having dysuria, frequency, hesitancy, some suprapubic discomfort. Seen by medic in home, she is awake, alert, in no distress. Ambulating comfortably, tolerating PO. Vitals show she is hypertensive but otherwise WNL. She denies any chest pain, back pain, flank pain, fevers. No dyspnea or neurologic symptoms. Able to void, not obstructed. States symptoms feel similar to UTI. Her physical exam is otherwise unremarkable, no CVA tenderness, abdomen soft and without peritoneal signs, has some mild suprapubic discomfort on exam, no rebound or guarding. Denies other ROS at this time. Plan: Patient has signs and symptoms she feels are consistent with prior UTIs, urine dip today appears consistent with UTI, will plan on initiating treatment and re-sending urine culture, advised given her progressive symptoms that she can go ahead and finish full course of antibiotics which she understands. No other signs or symptoms of illness on assessment today, I have a lower clinical suspicion for an occult emergency medical condition such as AAA, aortic dissection, SBO, pyelonephritis, sepsis. Discharged from visit with mandatory timed followup and strict return instructions reviewed. Primary care, consider 48 hour followup Disposition: We discussed the diagnostic uncertainty of home visits and the risk associated with this. In this case, the patient and I felt this to be an acceptable and reasonable amount of risk given the benefit of avoiding an ED visit. We discussed the need to seek care urgently/emergen tly in the setting of any new or worsening serious symptoms [email or web address] Not available 07/03/2024 13:17:48 Plan of Treatment Reminders Order Date Submit Date Provider Last Modified By Organization Details Last Modified Time Details Appointments None recorded. Lab culture, urine 2024 025 [place] [facility] (Centralized Electronic Ordering - All Locations), Patient Can Go To The Location Of Their Choice, [id number] 5 08:07:21 urinalysis, dipstick 2024 025 Pending sale to [facility], [address] [place] [address], [phone] 13:27:42 urinalysis, dipstick 2024 025 Pending sale to [facility], [address] [place] [address], [phone] 5 16:36:38 culture, urine 2024 025 [place] [facility] (Centralized Electronic Ordering - All Locations), Patient Can Go To The Location Of Their Choice, [id number] 5 16:07:36 urinalysis, dipstick 2024 025 Pending sale to [facility], [address] [place] [address], [phone] 5 19:47:24 BMP, serum or plasma 2024 025 Pending sale to [facility], [address] [place] [address], [phone] 5 16:10:24 urinalysis, dipstick 2023 024 Pending sale to [facility], [address] [place] [address], [phone] 4 20:34:22 Referral None recorded. Procedures None recorded. Surgeries None recorded. Imaging None recorded. Medication Orders cephalexin 500 mg capsule [address] [facility]/Pharmacy #1130, [phone] [place], [address], 5 13:13:01 cephalexin 500 mg capsule 2024 025 [facility]/Pharmacy #1130, [phone] [place], [address], 5 13:13:04 cephalexin 500 mg capsule 2024 025 [facility] [phone] [place], [address], 16:10:06 cephalexin 500 mg capsule 2024 [address]25 [phone] [place], [address], 16:10:02 cephalexin 500 mg capsule 2024 025 [facility] [phone] [place], [address], 5 18:44:44 cephalexin 500 mg capsule [address] [place], [place] [address]Pharmacy #1130, [phone] [place], [address], 5 18:44:42 prednisone 50 mg tablet 2024 025 [email or web address] [facility] [phone] [place], [address], 5 15:14:28 prednisone 20 mg tablet [address] [place], [place] [address]Pharmacy #1130, [phone] [place], [address], 5 15:14:30 Patient TargetsNo targets recorded. Patient InstructionsNo instructions recorded. Reason for Referral None Reported. Results Created Date Observation Date Name Description Value Unit Range Abnormal Flag Note LastModifiedBy Organization Detail LastModifiedTime 06/28/1906/28/2024 URINE CULTU RE, THAD NE urine culture, routine Final report Not Available [facility] ([facility]) [address] [facility] [address], [place], [address], 06/28/2024 16:07:36 06/28/1906/28/2024 URINE CULTU RE, ROUTI NE result 1 COMMEN T Mixed uroge nital lelia 25,00 0-50, 000 colon y formi ng units per mL Not Available [facility] ([facility]) [address] [place], [address], 06/28/2024 16:07:36 07/04/19 25 07/06/2024 URINE CULTU RE, UROLO GY ANDREA P urine culture, urology workup Final report abnormal Not Available [facility] ([facility]) [address] [place], [address], 07/06/2024 06:07:23 07/04/1907/06/2024 URINE CULTU RE, UROLO GY ANDREA P result 1 Escher ichia coli abnormal Cefaz yannick with an ALEXA <=16 predi cts susce ptibi lity to the oral agent s cefac jc, cefdi bebo, cefpo doxim e, cefpr ozil, cefur oxime , cepha lexin , and lorac arbef when used for thera py of uncom plica montserrat urina ry tract infec tions due to E. coli, Klebs iella pneum oniae , and Prote us mirab ilis. Great er than 100,0 00 colon y formi ng units per mL Not Available [facility] ([facility]) [address] [place], [address], 07/06/2024 06:07:23 07/04/1907/06/2024 URINE CULTU RE, UROLO GY ANDREA P antimicrobia l susceptibili ty Commen t S = Susce ptibl e; I = Inter media te; R = Resis tant P = Posit kahlil; N = Negat kahlil MICS are expre ssed in micro grams per mL Antib iotic RSLT# 1 RSLT# 2 RSLT# 3 RSLT# 4 Amoxi cilli n/Cla vulan ic Acid S Ampic illin R Cefaz yannick S Cefep kati S Cefox itin S Cefpo doxim e S Ceftr iaxon e S Cipro floxa karol S Ertap enem S Genta micin S Levof loxac in S Merop enem S Nitro furan toin S Piper acill in/Ta zobac jefferson S Tetra cycli ne S Tobra mycin S Trime thopr im/Torres lfa S Not Available [facility] ([facility]) [address] [facility] [address], [place], [address], 07/06/2024 06:07:23 Result Notes None recorded. Medical Equipment None Reported. Allergies Allergen ID Allergen Name Allergen Category Reaction Reaction Severity Criticality Documentation Date Start Date Code Code System Note Provider Name and Address Organization Details Recorded Time 64364 Boostrix medicatio n Not available Not available Not available 04/24/2024 32000 1 RxNorm Not Available [facility] - production 5 12:47:54 2890 metformin medicatio n Not available Not available Not available 09/10/2022 6809 RxNorm Not Available [facility] - production 4 11:30:05 2891 Vaccine product containin g only Clostridi um tetani antigen (medicina l product) medicatio n Not available Not available Not available 09/10/2022 33480 2002 SNOMED Gladys Ornelas MD [address] [facility],[address], [place], [address], [place] [employer] 3 10:58:15 Medications Name Sig Start Date Stop Date Status Note LastModified by Organization Details LastModified Time amoxicillin 500 mg capsule TAKE 1 CAPSULE BY MOUTH 3 TIMES A DAY UNTIL FINISHED active Not Available Not Available No t Available latanoprost 0.005 % eye drops INSTILL 1 DROP INTO BOTH EYES EVERY DAY AT BEDTIME active Not Available Not Available N ot Available atorvastatin 20 mg tablet TAKE 1 TABLET BY MOUTH EVERYDAY AT BEDTIME active Not Available Not Available No t Available albuterol sulfate 2.5 mg/3 mL (0.083 %) solution for nebulization INHALE 1 VIAL VIA NEBULIZER EVERY 6 HOURS NEEDED FOR WHEEZE / FOR SHORTNESS OF BREATH active Not Available Not Available No t Available azithromycin 250 mg tablet TAKE 2 TABLETS BY MOUTH TODAY, THEN TAKE 1 TABLET DAILY FOR 4 DAYS DIRECTED active Not Available Not Available No t Available cefpodoxime 100 mg tablet TAKE 1 TABLET EVERY 12 HOURS BY ORAL ROUTE FOR 6 DAYS. active Not Available Not Available Not Available fluconazole 150 mg tablet TAKE 1 TABLET BY MOUTH DAILY NEEDED FOR YEAST VAGINITIS active Not Available Not Available No t Available sulfamethoxa zole 400 mg-trimethop rim 80 mg tablet TAKE 1 TABLET BY MOUTH TWICE A DAY FOR 5 DAYS active Not Available Not Available No t Available cephalexin 250 mg capsule TAKE 1 CAPSULE BY MOUTH THREE TIMES A DAY active Not Available Not Available Not Available lisinopril 20 mg tablet TAKE 1 TABLET BY MOUTH EVERY DAY active Not Available Not Available No t Available prednisone 20 mg tablet TAKE 2 TABLETS BY MOUTH EVERY DAY FOR 5 DAYS active Not Available Not Available No t Available alendronate 70 mg tablet TAKE 1 TABLET BY MOUTH EVERY WEEK active Not Available Not Available No t Available sertraline 100 mg tablet TAKE 1 TABLET BY MOUTH EVERY DAY active Not Available Not Available No t Available melatonin 3 mg tablet TAKE 1 TABLET BY MOUTH AT BEDTIME active Not Available Not Available No t Available ciprofloxaci n 500 mg tablet TAKE 1 TABLET BY MOUTH TWICE A DAY active Not Available Not Available No t Available sulfamethoxa zole 800 mg-trimethop rim 160 mg tablet TAKE 1 TABLET BY MOUTH TWICE A DAY DIRECTED FOR 5 DAYS active Not Available Not Available N ot Available acetaminophe n 500 mg tablet TAKE 1 TABLET BY MOUTH EVERY 4 TO 6 HOURS NEEDED active Not Available Not Available No t Available amoxicillin 500 mg tablet TAKE 1 TABLET BY MOUTH EVERY 8 HOURS FOR 10 DAYS active Not Available Not Available No t Available ketorolac 0.5 % eye drops PALCE 1 DROP IN OPERATIVE EYE TWICE A DAY. START 2 DAYS PRIOR TO SURGERY. active Not Available Not Available No t Available ceftriaxone 1 gram solution for injection Take 1 g by injection route. 2023 active Not Available Not Available Not Avai lable methenamine hippurate 1 gram tablet TAKE 1 TABLET BY MOUTH TWICE A DAY active Not Available Not Available No t Available tamsulosin 0.4 mg capsule TAKE 1 CAPSULE BY MOUTH EVERYDAY AT BEDTIME active Not Available Not Available No t Available OneTouch Ultra Test strips TAKE 1 STRIP 3 TIMES A DAY TO TEST BLOOD SUGAR ROUTE DIRECTED FOR 100 DAYS. active Not Available Not Available No t Available phenazopyrid ine 100 mg tablet TAKE 1 TABLET 3 TIMES A DAY BY ORAL ROUTE FOR 3 DAYS, FOR DYSURIA/ BURNING. active Not Available Not Available No t Available cephalexin 500 mg capsule TAKE 1 CAPSULE TWICE A DAY BY ORAL ROUTE FOR 5 DAYS. active Not Available Not Available No t Available isosorbide dinitrate 20 mg tablet TAKE 1 TABLET BY MOUTH THREE TIMES A DAY active Not Available Not Available Not Available nystatin 100,000 unit/gram topical cream APPLY TO AFFECTED AREA AND SURROUNDING SKIN IN SKIN FOLDS/UNDER BREASTS 2 TIMES A DAY active Not Available Not Available Not Available lidocaine 5 % topical patch PLACE 1 PATCH TO AFFECTED AREA DAILY, 12 HOURS ON AND 12 HOURS OFF active Not Available Not Available No t Available gabapentin 300 mg capsule TAKE 1 CAPSULE BY MOUTH THREE TIMES A DAY active Not Available Not Available Not Available omeprazole 20 mg capsule,mario yed release TAKE 1 CAPSULE BY MOUTH EVERY DAY active Not Available Not Available No t Available montelukast 10 mg tablet TAKE 1 TABLET BY MOUTH EVERY DAY active Not Available Not Available No t Available estradiol 0.01% (0.1 mg/gram) vaginal cream USE DIRECTED, APPLY 1 FINGERTIP FULL TO EXTERNAL VAGINAL OPENING 3 TIMES WEEKLY. active Not Available Not Available No t Available methylpredni solone 4 mg tablets in a dose pack TAKE 6 TABLETS ON DAY 1 DIRECTED ON PACKAGE AND DECREASE BY 1 TAB EACH DAY FOR A TOTAL OF 6 DAYS active Not Available Not Available No t Available albuterol sulfate HFA 90 mcg/actuatio n aerosol inhaler INHALE 2 PUFFS ORALLY EVERY 4 TO 6 HOURS NEEDED FOR FOR WHEEZING FOR 30 DAYS active Not Available Not Available Not Available colchicine 0.6 mg tablet TAKE 1 TABLET BY MOUTH TWICE DAILY active Not Available Not Available No t Available sertraline 50 mg tablet TAKE 1 TABLET BY MOUTH EVERY EVENING AT DINNER active Not Available Not Available No t Available risperidone 1 mg tablet TAKE 1 TABLET BY MOUTH TWICE A DAY active Not Available Not Available No t Available loratadine 10 mg tablet TAKE 1 TABLET BY MOUTH EVERY DAY active Not Available Not Available No t Available risperidone 0.5 mg tablet TAKE 1 TABLET BY MOUTH TWICE A DAY active Not Available Not Available No t Available spironolacto ne 50 mg tablet TAKE 1 TABLET BY MOUTH EVERY DAY active Not Available Not Available No t Available amoxicillin 500 mg-potassium clavulanate 125 mg tablet TAKE 1 TABLET BY MOUTH two (2) times a day active Not Available Not Available No t Available verapamil ER 120 mg 24 hr capsule,exte nded release TAKE 1 CAPSULE BY MOUTH EVERY DAY active Not Available Not Available No t Available oxycodone 5 mg tablet TAKE 1 TABLET EVERY 6 HOURS NEEDED FOR BREAKTHROUG H PAIN. active Not Available Not Available No t Available hydroxyzine pamoate 25 mg capsule TAKE 1 CAPSULE BY MOUTH TWICE A DAY active Not Available Not Available No t Available cyclobenzapr ine 5 mg tablet TAKE 1 TABLET 3 TIMES A DAY BY ORAL ROUTE NEEDED. active Not Available Not Available No t Available bupropion HCl XL 300 mg 24 hr tablet, extended release TAKE 1 TABLET BY MOUTH EVERY MORNING active Not Available Not Available No t Available nitrofuranto in monohydrate/ macrocrystal s 100 mg capsule TAKE 1 CAPSULE BY MOUTH EVERY 12 HOURS FOR 5 DAYS active Not Available Not Available N ot Available chlorhexidin e gluconate 0.12 % mouthwash RINSE MOUTH WITH 15ML (1 CAPFUL) FOR 30 SECONDS IN MORNING AND EVENING AFTER BRUSHING, THEN SPIT active Not Available Not Available No t Available Advair HFA 115 mcg-21 mcg/actuatio n aerosol inhaler INHALE 2 PUFFS BY MOUTH TWICE A DAY active Not Available Not Available No t Available FreeStyle Lite Meter kit USE DIRECTED TO TEST BLOOD SUGAR. active Not Available Not Available No t Available diclofenac 1 % topical gel APPLY 2 GRAMS TO AFFECTED AREA 3-4 TIMES DAILY active Not Available Not Available Not Available melatonin 5 mg tablet TAKE 1-2 TABLETS BY MOUTH AT BEDTIME NEEDED FOR INSOMNIA. active Not Available Not Available No t Available GaviLyte-G 236 gram-22.74 gram-6.74 gram-5.86 gram oral solution DRINK BY MOUTH DIRECTED PER GI OFFICE INSTRUCTION S active Not Available Not Available No t Available roflumilast 500 mcg tablet TAKE 1 TABLET BY MOUTH EVERY DAY active Not Available Not Available No t Available Jardiance 10 mg tablet TAKE 1 TABLET BY MOUTH EVERY DAY FOR 30 DAYS active Not Available Not Available No t Available Ozempic 0.25 mg or 0.5 mg (2 mg/1.5 mL) subcutaneous pen injector INJECT 0.5MG SUBCUTANESO EDWARD EVERY WEEK active Not Available Not Available No t Available OneTouch Ultra2 Meter TEST BLOOD SUGAR 3 TIMES DAILY active Not Available Not Available Not Available OneTouch Delica Plus Lancet 33 gauge USE 1 LANCET DIRECTED 3 TIMES DAILY TO TEST BLOOD SUGAR FOR 100 DAYS active Not Available Not Available No t Available Ozempic 1 mg/dose (4 mg/3 mL) subcutaneous pen injector INJECT 1 MG EVERY WEEK BY SUBCUTANEOU S ROUTE DIRECTED FOR 84 DAYS. active Not Available Not Available No t Available Vitals Date Recorded Heart rate Oxygen saturation Oxygen saturation in Arterial blood by Pulse oximetry Respiratory rate Body temperature Systolic And Diastolic Provider Name and Address Organization Details Last Updated DateTime 5 76 /min 96 % 96 % 16 /min 97.9 [degF] 150/82 mm[Hg] Not Available [facility] 5 15:13:12 Date Recorded Body height Body temperature Body weight Respiratory rate Oxygen saturation Oxygen saturation in Arterial blood by Pulse oximetry Heart rate Systolic And Diastolic Provider Name and Address Organization Details Last Updated DateTime 5 167.64 cm 97.8 [degF] 332300. 832 g 20 /min 98 % 98 % 75 /min 135/67 mm[Hg] Not Available [facility] 5 18:39:30 Date Recorded Respiratory rate Body temperature Oxygen saturation Oxygen saturation in Arterial blood by Pulse oximetry Heart rate Systolic And Diastolic Provider Name and Address Organization Details Last Updated DateTime 5 14 /min 97.3 [degF] 99 % 99 % 68 /min 131/86 mm[Hg] Not Available [facility] 5 16:03:32 Date Recorded Oxygen saturation Oxygen saturation in Arterial blood by Pulse oximetry Body temperature Respiratory rate Heart rate Systolic And Diastolic Provider Name and Address Organization Details Last Updated DateTime 5 99 % 99 % 97.9 [degF] 18 /min 81 /min 152/98 mm[Hg] Not Available [facility] 5 12:59:39 Date Recorded Oxygen saturation Oxygen saturation in Arterial blood by Pulse oximetry Body weight Heart rate Respiratory rate Body temperature Systolic And Diastolic Provider Name and Address Organization Details Last Updated DateTime 4 97 % 97 % 500310. 976 g 76 /min 16 /min 98.1 [degF] 118/68 mm[Hg] Not Available [facility] 4 12:43:21 Social History None recorded. Functional Status None recorded. Mental Status None recorded. Family History Nothing Reported. Medical History No medical history recorded. Gynecological HistoryNo gynecological history recorded. Obstetrics History GPAL:G 0 P 0 0 0 0 Past Encounters Encounter ID Performer Location Encounter Start Date Encounter Closed Date Diagnosis/Indication Diagnosis SNOMED-CT Code Diagnosis ICD10 Code Diagnosis Note [id number] Gladys Ornelas MD [facility] [address] [place] [id number] 09/10/2022 10:57:27 09/11/2022 11:04:13 Urinary symptoms [id number] R39.9 Patient advised to avoid being in the sun while on Bactrim, stay out of the heat, stay cool, rest and push p.o. fluids-I advised that she follow-up with her urologist no later than Wednesday of next week-Even though she has CKD her urologist has been prescribin g Bactrim for her so I will send in another prescripti on for same [id number] Torsten Acuna MD [facility] [address] [place] [id number] 10/27/2022 19:31:44 10/28/2022 11:56:12 Urinary symptoms [id number] R39.9 [id number] Gladys Ornelas MD [facility] [address] [place] [id number] 02/11/2023 18:31:22 02/12/2023 13:28:44 Muscle spasm of cervical muscle of neck [id number] 04 M62.838 Her neck pain appears to be muscular. Advised she may take Tylenol 500 mg (which she has at home) 2 tablets every 6 hours as needed for pain based on weight. First dose administer ed by medic. Due to history of stage III CKD and the fact that her doctor told her never to take naproxen or other NSAIDs(adv ised that includes Motrin, Advil, Aleve, ibuprofen) due to risk of causing worsening kidney function, ketorolac is contraindi cated. Will trial low-dose cyclobenza eloise (made patient aware it still might make her drowsy ) and \advised ice / wrapped in a towel alternatin g w/ gentle heat q 3-4H w/a to affected area/avoid uncomforta ble movement. Advised close follow-up with PCP tomorrow will need to discuss further pain management [id number] ANUSHA DE JESUS MD [facility] [address] [place] [id number] 07/11/2023 13:53:30 07/12/2023 18:08:55 Urinary symptoms [id number] R39.9 Evaluation in the field was performed by my hangar attendant colleague, as noted above, I provided real-time direction and supervisio n for this visit. The evaluation revealed 72 yo female with hx of Type 2 DM , well controlled - BG this morning 98, CKD, frequent UTI with complains of UTI symptoms including suprapubic pain, increase frequency urge x5 days . Reports low grade fever last night to 100.0 for which she took Tylenol with resolution . Has not taken any today. Denies nausea, vomiting, back pain, CVA tenderness . Last UTI with us in January. Ucx showed >100 K E.Coli sorto sensitive. Denies any hx of MDR UTI.BP 110/60, HR 76, RR 16, O2 sat 95 % RA, T 97.8Exam with no CVA tenderness UA suggestive of UTI Impression :UTI Plan:Ceftr iaxone 1 gram IV x1 now-Rx for Cefpodoxim e 100 mg BID for 6 more days sent to her pharmacy-A dvised to drink plenty of fluids-Uri ne culture to be sent to lab [facility]. Will follow result.-Re d flags discussed with the patient Primary care, consider__ _ Dispositio n: We discussed the diagnostic uncertaint y of home visits and the risk associated with this. In this case, the patient and I felt this to be an acceptable and reasonable amount of risk given the benefit of avoiding an ED visit. We discussed the need to seek care urgently/e mergently in the setting of any new or worsening serious symptoms, particular ly fever, chills, CP, SOB, nausea, vomiting, CVA tenderness or any other concerns. [id number] Gladys Ornelas MD Main - [facility] [address] [place] [address] [phone] 09/23/2023 13:11:27 09/24/2023 11:55:51 Urinary symptoms [id number] R39.9 Patient advised stay out of the heat, stay cool, rest and push p.o. fluids-I advised that she follow-up with her urologist/ pcp no later than Wednesday of next week-Even though she has CKD historical ly, renal function is currently stable-She has no systemic symptoms so nitrofuran toin is acceptable and will prescribe low-dose Pyridium for her dysuria for 3 days-her last culture from 07/11/2023 that I have access to showed Enterobact er which was nitrofuran toin sensitive Pharmacy and allergies verified-p idania has someone who can potato picker her prescripti ons for her today [id number] Pedro Pablo Craig MD Main - [facility] [address] [place] [address] [phone] 11/12/2023 11:37:49 11/15/2023 08:28:24 Urinary symptoms [id number] R39.9 [id number] Yury Garcia MD Main - [facility] [address] [place] [address] [phone] 11/15/2023 18:40:33 11/16/2023 13:08:35 Exposure to SARS-CoV-2 [id number] Z20.822 [id number] Yury Garcia MD Main - [facility] [address] [place] [address] [phone] 01/05/2024 12:43:16 01/10/2024 17:15:20 Vaginitis [id number] N76.0 [id number] Manuelito Shore MD Main - [facility] [address] [place] [address] [phone] 03/02/2024 15:13:10 03/02/2024 20:16:42 Acute gout [id number] M10.9 As noted, we were called to see this patient regarding concerns of wrist pain and swelling. Evaluation in the field was performed by my hangar attendant colleague, as noted above, I provided real-time direction and supervisio n for this visit. The evaluation revealed normal VS and a benign appearing wrist notable for moderate pain, mild swelling, and mild-mod restrictio n of ROM. No fevers/chi lls/sweats . ROM is near full but with some discomfort . No hx BSI or IVDU. UTI many months ago. No indulgent meals, big parties, or new meds lately. Gets a flare every few months she thinks. Not on any suppressiv e meds. BMP is reassuring against EMILY. Impression :Acute arthritis most c/w gout vs pseudogout , roya given her age, joint location, and milder presentati on. Nothing implicatin g a cause. Not suggestive of septic arthritis as she should be sicker and have ROM restrictio n, plus has no risk factors. Plan:Pred 50 now and 40 x 5 laterCan iceAdvised to f/u PCP to discuss establishi ng dx and whether or not would want allopurino l or similar Primary care, considerch amadeo in call. Dispositio n: We discussed the diagnostic uncertaint y of home visits and the risk associated with this. In this case, the patient and I felt this to be an acceptable and reasonable amount of risk given the benefit of avoiding an ED visit. We discussed the need to seek care urgently/e mergently in the setting of any new or worsening serious symptoms, particular ly fever, inability to move wrist. [id number] Yury Garcia MD Main - [facility] [address] [place] [address] [phone] 04/24/2024 18:39:26 04/24/2024 22:20:12 Urinary symptoms [id number] R39.9 [id number] Yury Garcia MD Main - [facility] [address] [place] [address] [phone] 06/27/2024 16:03:29 06/27/2024 19:34:06 Urinary system finding [id number] R39.9 [id number] Rakesh Ayala MD Main - [facility] [address] [place] [address] [phone] 07/03/2024 12:59:35 07/03/2024 18:16:47 Acute urinary tract infection [id number] N39.0 Health Concerns Section Related Observation LastModified by Organization Detai ls LastModified Time None Recorded Concern Status LastModified by Organization Details LastModified Time None Recorded Advance Directives Directive None Recorded Payers Insurance Date Sequence Insurance Name Policy Number Policy Barriga Covered Member ID Barriga Member ID Guarantor Name 07/03/[address] [facility] [place] [place] - DOS ON OR AFTER 2022 - DUAL ELIGIBLE - USP OPTIONS AND ONE CARE (MEDICARE REPLACEMENT/AD VANTAGE - HMO) Evonne Lindsay [id number] Evonne Lindsay Notes Date Note Type Note Provider Name and Address Organization Details Recorded Time 01/05/2024 text/html CRC Nurse Triage Notes (Anthony Eduardo): Reason For Request: suspected UTI Chief Complaints: Urinary symptoms PMH: COPD/Asthma, Hypertension, Severe Persistent Mental Illness (SPMI), Coronary Artery Disease, Chronic Back Pain, Fibromyalgia Comments: Director Apparel verified the Pt.'s name//address and phone number. Education provided on the response time and the Pt. was advised to monitor reported s/s and seek emergency treatment if needed. Pt reports feeling unwell with increased frequency/urgency and burning - Urine is cloudy with an odor - Denies fever - S/S started 3 days ago. Watch Parts Inspector Organization Information for Lanre Cope [employer] Legal Name: [facility] Address: [address] [place] [address], [place] [address], [employer] Bearer: Levon Luevano MD ALBERT No.: [id number] Watch Parts Inspector POC Test Results from Lanre Cope Urine Dipstick (12:34:27) Urine leukocytes: 125++ CTA Urine nitrites: NR Urine urobilinogen: 1(17) URO Urine protein: NR Urine pH: 6 pH Urine blood: NR Urine specific gravity: 1.010 SG Urine ketones: NR Urine bilirubin: 1(17)+ BILLIE Urine glucose: NR ..................... ..................... ..................... ..................... ..................... ..................... ............... Watch Parts Inspector Note From Lanre Cope: Pt co painful urination, lower abdominal discomfort/pain 08/24. Pt sts urine is cloudy with odor. Pt sts has some itching around urethra. Pt sts symptoms for pst 3 days. Pt denies NVD, confusion, fever or flank pain. Pt denies Cp, SOB, headache or dizziness. Allergies discussed.Baseline vitals assessed, WNL, Afebrile, urine dip unremarkable. Urine cloudy and yellow.Pain on palpation of lower abdomen. Pt sts she has bladder issues along with kidneys. [facility] Jose contacted and advised pt [facility] will contact care in team in regards to pt needing full exam with urologist. Pt education on signs indicating the ER. Pt advised to follow with PCP. ..................... ..................... ..................... ..................... ..................... ..................... ............... [facility] Consulted: Yury Garcia ..................... ..................... ..................... ..................... ..................... ..................... ............... Disposition: Fulfilled Yury Garcia MD [address] [place] [address],[address] [facility], [place], [phone], [employer] 01/08/2024 10:12:37 03/02/2024 text/html CRC Nurse Triage Notes (Anthony Eduardo - RN): Reason For Request: pt thinks she has gout flare up in left wrist Denies: Gill Flash, circumferential gill Gill reported with black tissue to the area Open skin area after a fall with uncontrolled bleeding Abscess/infection with streaking noted, presence of fever or without Fever and chills noted in setting of wound Rash Bites -bugs, spider Chief Complaints: Swelling PMH: COPD/Asthma, Hypertension, Severe Persistent Mental Illness (SPMI), Coronary Artery Disease, Chronic Back Pain, Fibromyalgia, Gout, Chronic Kidney Disease PMH Reviewed at 03/01/2024:42 Allergies Reviewed at 03/01/2024 - 16:42 Comments: Director Apparel verified the Pt.'s name//address and phone number. Education provided on the response time and the Pt. was advised to monitor reported s/s and seek emergency treatment if needed. Pt reports feeling unwell with left wrist pain with swelling/redness - Area is warm to the touch - Hx of Gout - Similar feeling - Denies wounds - Denies fever - Denies injuries - S/S started yesterday - Reports Tylenol for pain - Some relief. Wellness check requested. 03/01 9:25p- [facility] call to patient to provide ETA, they declined a visit for tonight, and would like to be seen around 1p tomorrow, 03/02- Watch Parts Inspector Organization Information for Agusto Sauceda Business Legal Name: [employer]. Address: [address] [place] [address], Edge [employer] Bearer: Franklin Pradhan MD CLIA No.: [id number] Watch Parts Inspector POC Test Results from Agusto Sauceda iSTAT Chem8+ (14:35:05) Na: 139 mEq/L K: 4.3 mEq/L Cl: 106 mEq/L iCa: 1.29 mmol/L TCO2: 25 mmol/L Glu: 85 mg/dL BUN: 12 mg/dL Crea: 1.0 mg/dL Hct: 38 % Hb: 12.9 g/dL A ..................... ..................... ..................... ..................... ..................... ..................... ............... Watch Parts Inspector Note From Agusto Sauceda: Dispatched to the call address for the female with wrist pain. Pt states she has had increased pain in her left wrist for a couple of days now, advising that she can rotate her wrist but at the cost of increased pain. She states she has had this before, most recent being December, and was treated for gout though, does not remember the specific treatment she received. Pt denies any trauma to the area. Pt was found sitting in chair in bedroom, in no obvious distress, CAOx4, airway open and patent, breathing non labored, able to speak in full sentences, -JVD, -HEENT, skin PWD with good turgor, mucous membranes pink and moist, pupils PERRL, lungs CTA, abd soft non tender/distended, wrist without warmth/erythema or swelling/edema. C consulted. BMP. (23g L AC). C advised. Pt given 50mg Prednisone PO after 5 med rights were confirmed. Red flags discussed. Script called into preferred pharmacy. Red flags discussed. ..................... ..................... ..................... ..................... ..................... ..................... ............... [facility] Consulted: Jose Raul Shore ..................... ..................... ..................... ..................... ..................... ..................... ............... Disposition: Cassandra Shore MD [address] [facility],[address], [place], [phone], [employer] 03/02/2024 15:18:16 04/24/2024 text/html CRC Nurse Triage Notes (Giovanny Pearce): Reason For Request: Possible UTI. Patient Reports: Lower back pain either unilateral or bilateral, unable to void, painful urination -hematuria Denies: Unable to void greater than 5 hours Erection that will not go away after 2 hours Fall or trauma that results in urinary incontinence in the setting of pain Fall or injury that results in incontinence in the absence of pain Chief Complaints: Urinary Symptoms PMH: COPD/Asthma, Hypertension, Severe Persistent Mental Illness (SPMI), Coronary Artery Disease, Chronic Back Pain, Fibromyalgia, Gout, Chronic Kidney Disease, Diabetes Mellitus Type 2, Osteoporosis PMH Reviewed at 04/24/2024 Allergies Reviewed at 04/24/2024: Comments: Director Apparel verified the patient's name//address and phone number. Pt calling reporting that she believes she has a UTI. Pt reports strong odor, pain with urination and increased frequency for the last two days. Pt reports R sided flank pain as well, denies hematuria. Education provided on the response time and the patient was advised to monitor reported s/s and seek emergency treatment if needed -Sky Pearce RN Watch Parts Inspector Organization Information for BourneVirginia barnes [employer] Legal Name: [facility] Address: [address] [place] [address], [place] [address], Edge [employer]ing [employer] Bearer: Levon Luevano MD [place] No.: [id number] Watch Parts Inspector POC Test Results from [employer] [place] Agilence Urine Dipstick (18:21:31) Urine leukocytes: 3+ CAT Urine nitrites: + NIT Urine urobilinogen: 0.2 URO Urine protein: - PRO Urine pH: 7.5 pH Urine blood: + BLO Urine specific gravity: 1.025 SG Urine ketones: - KET Urine bilirubin: - BILLIE Urine glucose: - GLU Attachments uploaded as part of this test result can be found under Documents section. ..................... ..................... ..................... ..................... ..................... ..................... ............... Watch Parts Inspector Note From Virginia Bourne: Pt chief complaint today of possible uti symptoms that have been occurring approx 48 hours prior to [facility] arrival on scene. Pt notes to have lower abdominal bilaterally, mostly near where her-bladder is/ states that pain is at. 7/10 level. Pt also notes to have a foul odor with her urination as well as a burning sensation. Pt state that she is prone to these and is usually given an antibiotic such as Bactrim or keflex with very positive effect. Pt today is looking for a general assessment as well as possible treatment. Pt today denies my cp, sob, NVD, dimness or blurred vision. Pt allergies are note in appropriate PCR tab. Nonneural focal exam, afebrile, vitals are WNL for the baseline of the pt. Lungs are clear bilaterally on auscultation. Upon inspection of abdomen no rigidity and or tenderness is noted. Upon palpation of deep tissue pain is reproduced. No lower extremity edema noted. Pt is CAOX4 with a GCS of 15. Pt is blue to provide urine simple for [facility]. Sample reads positive leukocytes and nitrates. [facility] yury garcia consulted. Pt given 500mg of oral keflex for possible uti. Prescription sent to local pharmacy of pt choice. Pt is informed to call her pcp at earliest convenience for follow up as needed. Pt is educated in red flag S&S and told to call emergency services if any present. No culture acquired. [facility] Lab Orders: urinalysis, dipstick: Performed [facility] Medication Orders: cephalexin 500 mg capsule: Administered ..................... ..................... ..................... ..................... ..................... ..................... ............... [facility] Consulted: Yury Garcia ..................... ..................... ..................... ..................... ..................... ..................... ............... Disposition: Cassandra Garcia MD [address] [place] [address],[address] [facility], [place], [id number] [employer] 04/24/2024 19:11:21 06/27/2024 text/html CRC Nurse Triage Notes (Ivonne Barrera): Reason For Request: UTI Patient Reports: Painful urination; Frequent and increased urination with flank pain; Painful urination with or without fever; Inability to fully empty bladder Denies: Unable to void greater than 5 hours Erection that will not go away after 2 hours Fall or trauma that results in urinary incontinence in the setting of pain Fall or injury that results in incontinence in the absence of pain Lower back pain either unilateral or bilateral, unable to void, painful urination -hematuria Chief Complaints: Urinary Symptoms PMH: COPD/Asthma, Hypertension, Severe Persistent Mental Illness (SPMI), Coronary Artery Disease, Chronic Back Pain, Fibromyalgia, Gout, Chronic Kidney Disease, Diabetes Mellitus Type 2, Osteoporosis, Chronic Obstructive Pulmonary Disease (COPD), Asthma, Hyperthyroidism PMH Reviewed at 06/27/2024: Allergies Reviewed at 06/27/2024:55 Comments: 73 y.o female complains of Urinary Symptoms She has 3 days of symptoms. She has frequency, urgency, dark color, and painful urination. She has baseline incontinence. She denies any odor. She does have abd pain, and bilateral flank pain. CKD stage 3, not on dialysis. She denies any fever/ chills/ nausea / vomiting I provided information on the mobile health provider response time and advised the patient and/or caregiver to monitor reported signs and symptoms. I discussed the warning signs of when to seek emergency care. Watch Parts Inspector Organization Information for Qasim Cam [employer] Legal Name: [facility] Address: [address] [place] [address], [place] [address], Edge [employer] Bearer: Levon Luevano MD [facility] No.: [id number] Watch Parts Inspector POC Test Results from [employer] Urine Dipstick (15:56:52) Urine leukocytes: 3+ CAT Urine nitrites: - NIT Urine urobilinogen: - URO Urine protein: 4+ PRO Urine pH: 6.5 pH Urine blood: 1+ BLO Urine specific gravity: 1.000 SG Urine ketones: - KET Urine bilirubin: - BILLIE Urine glucose: - GLU ..................... ..................... ..................... ..................... ..................... ..................... ............... Watch Parts Inspector Note From Qasim Cam: This 73-year-old female with a history including but not limited to COPD, HTN, depression, CAD, fibromyalgia, CKD, DM type II, osteoporosis, hypothyroidism requested a visit today to address three days of dysuria, superpubic pressure, and bilateral flank pain. Patient states she gets UTIs often, approximately every other month. Patient denies any chest pain, shortness of breath, headaches, dizziness, fevers, nausea, vomiting, diarrhea. Patient presents awake and alert, in no acute distress and speaking full sentences. Her vital signs are reasonably stable and she is afebrile. Nonfocal neurological exam. Normal gait. Lungs are clear throughout auscultation. Suprapubic tenderness on palpation, abdomen is soft and nondistended. Right-sided CVA tenderness. No lower extremity edema. Urinalysis is remarkable for leukocytes, protein and blood. [facility] I treated with cephalexin 500 mg. We discussed the diagnostic uncertainty of home visits and the risk associated with this. In this case, the patient and I felt this to be an acceptable and reasonable amount of risk given the benefit of avoiding an ED visit. I provided education on the patient's prescription. I recommend she stays well hydrated and follows up with her PCP. I instructed her to present to the emergency department for any new or worsening severe symptoms such as chest pain, severe shortness of breath, high fever, uncontrollable nausea/vomiting, altered mental status. The patient was given the opportunity to ask questions and is agreeable to this plan. [facility] Lab Orders: urinalysis, dipstick: Performed culture, urine: Performed [facility] Medication Orders: cephalexin 500 mg capsule: Administered ..................... ..................... ..................... ..................... ..................... ..................... ............... [facility] Consulted: Yury Garcia ..................... ..................... ..................... ..................... ..................... ..................... ............... Disposition: Fulfilled Yury Garcia MD [address] [facility],[address], [place], [address], [facility] 06/27/2024 16:36:09 07/03/2024 text/html CRC Nurse Triage Notes (Ivonne Barrera): Reason For Request: Pt reporting that she has UTI>requesting a visit for treatment>[facility], UTI was not diagnosed at this time she mentions. Patient Reports: Painful urination; Painful urination with or without fever; Inability to fully empty bladder Denies: Unable to void greater than 5 hours Erection that will not go away after 2 hours Fall or trauma that results in urinary incontinence in the setting of pain Fall or injury that results in incontinence in the absence of pain Lower back pain either unilateral or bilateral, unable to void, painful urination -hematuria Frequent and increased urination with flank pain Chief Complaints: Urinary Symptoms PMH: COPD/Asthma, Hypertension, Severe Persistent Mental Illness (SPMI), Coronary Artery Disease, Chronic Back Pain, Fibromyalgia, Gout, Chronic Kidney Disease, Diabetes Mellitus Type 2, Osteoporosis, Chronic Obstructive Pulmonary Disease (COPD), Asthma, Hyperthyroidism PMH Reviewed at 07/03/2024 - 12:10 Allergies Reviewed at 07/03/2024 - 12:10 Comments: 73 y.o female complains of Urinary Symptoms Pt was seen on 06/27 and UC came back with [id number] of MGF. She was told to stop the medication. She is calling today and she is having odor, cloudy, frequency, and burning when she voids. She denies any abd / back pain. She denies any nausea / vomiting/ fever/ chills. I provided information on the mobile health provider response time and advised the patient and/or caregiver to monitor reported signs and symptoms. I discussed the warning signs of when to seek emergency care. Watch Parts Inspector Organization Information for Rodriguezfrancisca Gagan Kan [employer] Business Legal Name: [employer]. Address: [address] [place] [address], [employer] Bearer: Franklin Pradhan MD CLIA No.: [id number] Watch Parts Inspector POC Test Results from [employer]francisc[employer] Urine Dipstick (12:55:16) Urine leukocytes: 500+++ CAT Urine nitrites: - NIT Urine urobilinogen: 0.2 3.5 URO Urine protein: - PRO Urine pH: 6.0 pH Urine blood: ++ BLO Urine specific gravity: 1.005 SG Urine ketones: 5 +- 0.5 KET Urine bilirubin: 1 +17 BILLIE Urine glucose: - GLU Attachments uploaded as part of this test result can be found under Documents section. ..................... ..................... ..................... ..................... ..................... ..................... ............... Watch Parts Inspector Note From Gagan Dinh: Encountered patient seated upright and conscious with family present. Patient reports approximately one week of painful, sharp urination and anterior pelvic pain as well as odorous urine. Patient states she was seen by the [facility] service last week and was given one dose of antibiotics for a suspected urinary tract infection, but no prescription was sent to her pharmacy. Patient denies chest pain, shortness of breath, and fevers at this time. Urinalysis performed, results uploaded via [employer]. Skin warm dry and of appropriate color for ethnicity. Head and neck, free of trauma and edema.-JVD. Breath sounds present clear, and equal bilaterally. Abdomen is soft, non-tender and non-distended. Extremities are free of trauma and edema. [facility] contacted: reports patient is likely suffering from a urinary tract infection due to urinalysis results, culture obtained to be taken to [facility]. 500 mg of PO Keflex administered. [facility] reports they will write a prescription for further treatment to patient s pharmacy of choice. Patient was encouraged to follow up with primary care and to monitor herself for fevers chest pain, shortness of breath and confusion. Patient verbalizes understanding of the plan and expresses she is comfortable remaining home today. [facility] Lab Orders: culture, urine: Performed urinalysis, dipstick: Performed [facility] Medication Orders: cephalexin 500 mg capsule: Administered ..................... ..................... ..................... ..................... ..................... ..................... ............... [facility] [place]: Rakesh Ayala ..................... ..................... ..................... ..................... ..................... ..................... ............... Disposition: Fulfilled Rakesh Ayala MD [address] [place] [address],[address] [facility], [place], [id number], MISTY KOO 07/03/2024 13:19:01 OBGyn Episode No OBEpisode recorded.
== END 2024-08-21 08:20 | disposition home or self-care (01) ==
LOC: HO.HPS 08:04
PROVIDERS: PCP Family Medicine; Visit Provider Hospitalist
DX: J44.9 Chronic obstructive pulmonary disease, unspecified (principal); J98.4 Other disorders of lung; J98.11 Atelectasis
CPT/HCPCS: 99214

== ENCOUNTER → 2024-08-21 08:03 | Outpatient (BNVA) | payer OTHER, SELFPAY | PROVIDERS: PCP Family Medicine; Visit Provider Hospitalist | DX: J98.11 Atelectasis (principal); J44.89 Other specified chronic obstructive pulmonary disease; J98.4 Other disorders of lung | CPT/HCPCS: 99212 ==